=== PATIENT | male | born 1975 | race Caucasian/White ===

== ENCOUNTER 2017-07-24 17:52 | Emergency (ER) | payer OTHER ==
[2017-07-24] MEDS: DIPHENHYDRAMINE 50 MG INJ IV (18:25)
[2017-07-24] MEDS: METHYLPREDNISOLONE 125 MG INJ IV (18:25)
[2017-07-24 19:19] LABS: ANION GAP 18 (8-16); BLOOD UREA NITROGEN 10 mg/dl (7-20); CALCIUM 9.6 mg/dl (8.4-10.2); CARBON DIOXIDE 28 mmol/L (21-31); CHLORIDE 102 mmol/L (97-110); CREATININE 0.69 mg/dl (0.61-1.24); GLUCOSE 288 mg/dl (70-220); POTASSIUM 4.1 mmol/L (3.5-5.1); SODIUM 144 mmol/L (135-144)
[2017-07-24 19:33] LABS: RED BLOOD COUNT 5.04 10^6/ul (4.70-6.10)
[2017-07-24 19:33] LABS: WHITE BLOOD COUNT 5.3 10^3/ul (4.8-10.8)
[2017-07-24 19:34] LABS: HEMATOCRIT 42.2 % (42.0-52.0); MEAN CORPUSCULAR VOLUME 83.7 fl (82.0-101.0); MEAN PLATELET VOLUME 8.4 fl (7.4-10.4); PLATELET COUNT 253 10^3/UL (140-415); RED CELL DISTRIBUTION WIDTH 13.1 % (11.5-14.5)
[2017-07-24 19:35] LABS: HEMOGLOBIN 15.4 g/dl (14.0-18.0); POSITIVE DIFF @See below
[2017-07-24 19:36] LABS: ADD MAN DIFF? YES; MEAN CORPUSCULAR HEMOGLOBIN 28.9 pg (29.0-33.0); MEAN CORPUSCULAR HGB CONC 34.8 g/dl (32.0-37.0)
[2017-07-24 20:17] LABS: ANISOCYTOSIS 1+ (0-0); EOSINOPHILS % (M) 1 % (0-7); LYMPHOCYTES #M 1.7 10^3/ul (0.8-2.9); LYMPHOCYTES % (M) 33 % (15-51); MICROCYTOSIS 1+ (0-0); MONOCYTE #M 0.1 10^3/ul (0.3-0.9); MONOCYTES % (M) 3 % (0-11); POIKILOCYTOSIS 1+ (0-0); SCHISTOCYTES 1+ (0-0); SEGMENTED NEUTROPHILS (M) % 63 % (39-77); SMUDGE%M 2 % (0-0); SPHEROCYTES 1+ (0-0); STOMATOCYTES 1+ (0-0)
== END 2017-07-24 20:09 | disposition home or self-care (01) ==
LOC: FTE 17:52
DX: L23.9 Allergic contact dermatitis, unspecified cause (principal)
CPT/HCPCS: 80048; 85025; 96374; 96375; 99284-25